=== PATIENT | female | born 1985 | race Caucasian/White ===

== ENCOUNTER 2019-01-28 14:18 | Emergency (ER) | payer OTHER ==
[~2019-01-28] VITALS: Ht 157.5 cm; Wt 72.6 kg
[~2019-01-28 14:18] MED LIST: MEDROL4 MG PO; PROVENTIL3 ML/2.5 M IH
== END 2019-01-28 19:31 | disposition home or self-care (01) ==
LOC: ER 14:18
DX: B34.9 Viral infection, unspecified (principal)

== ENCOUNTER 2023-11-03 15:50 | Emergency (ER) | payer OTHER ==
[~2023-11-03] VITALS: Ht 157.5 cm; Wt 72.6 kg
[2023-11-03] MEDS ORDERED: AMLODIPINE-OLM1 EAC2 (15:54)
[2023-11-03] MEDS ORDERED: ENALAPRILAT DIHYDRATE 1.25 MG/ML VIAL IV STA (17:03)
[2023-11-03] MEDS ORDERED: ENALAPRILAT DIHYDRATE 1.25 MG/ML VIAL IV ONE (17:23)
[2023-11-03 17:34] LABS: HEMATOCRIT 41.3 % (36.0-45.00); HEMOGLOBIN 14.1 g/dL (12.0-15.00); MEAN CELL VOLUME 88.3 fL (80.00-100.00); MEAN CORPUSCULAR HEMOGLOBIN 30.1 pg (27.00-32.0); MEAN CORPUSCULAR HGB CONC 34.2 g/dl (32.0-36.0); PLATELET COUNT 379 K/uL (150-450); RED BLOOD COUNT 4.68 M/uL (4.00-6.00); RED CELL DISTRIBUTION WIDTH 11.6 % (11.5-14.5)
[2023-11-03 17:53] LABS: CALCIUM 9.5 mg/dL (8.5-10.1); CREATININE SERUM 0.66 mg/dL (0.55-1.02); GFR 99.7; POTASSIUM 3.44 mEq/L (3.5-5.1)
[2023-11-03] MEDS ORDERED: KETOROLAC TROMETHAMINE 30 MG VIAL IM STA (18:21)
[2023-11-03] MEDS ORDERED: KETOROLAC TROMETHAMINE 30 MG VIAL ONE (18:29)
== END 2023-11-03 19:02 | disposition home or self-care (01) ==
LOC: ER 15:51
PROVIDERS: General Practice
DX: M94.0 Chondrocostal junction syndrome [Tietze] (principal); R07.89 Other chest pain

== ENCOUNTER 2024-04-30 12:15 | Emergency (ER) | payer OTHER ==
[~2024-04-30] VITALS: Ht 157.5 cm; Wt 73.0 kg
[~2024-04-30 12:15] MED LIST changes: +AMLODIPINE-OLM1 EAC2
[2024-04-30] MEDS ORDERED: TOPROL XL25 M1 (12:47)
[2024-04-30] MEDS ORDERED: CETIRIZINE HCL 5 MG/5 ML ML PO ONE (15:45)
[2024-04-30] MEDS ORDERED: ACETAMINOPHEN 500 MG GEL..CAP PO ONE (15:45)
[2024-04-30] MEDS ORDERED: GUAIFENESIN/DEXTROMETHORPHAN 100MG/10ML BLIST.PACK PO ONE (15:45)
[2024-04-30 16:22] LABS: HEMATOCRIT 38.7 % (36.0-45.00); HEMOGLOBIN 13.1 g/dL (12.0-15.00); MEAN CELL VOLUME 89.4 fL (80.00-100.00); MEAN CORPUSCULAR HEMOGLOBIN 30.2 pg (27.00-32.0); MEAN CORPUSCULAR HGB CONC 33.8 g/dl (32.0-36.0); PLATELET COUNT 275 K/uL (150-450); RED BLOOD COUNT 4.33 M/uL (4.00-6.00); RED CELL DISTRIBUTION WIDTH 11.7 % (11.5-14.5)
[2024-04-30] MEDS ORDERED: OSELTAMIVIR PHOSPHATE 75 MG CAPSULE PO ONE (17:00)
[2024-04-30] MEDS ORDERED: QC TUSSIN DM L118 ML PO (17:40)
[2024-04-30] MEDS ORDERED: ZYRTEC10 MG PO (17:40)
[2024-04-30] MEDS ORDERED: OSEL75CA PO (17:40)
== END 2024-04-30 18:02 | disposition home or self-care (01) ==
LOC: ER 12:17
PROVIDERS: General Practice
DX: J10.1 Influenza due to other identified influenza virus with other respiratory manifestations (principal); R53.81 Other malaise; J45.909 Unspecified asthma, uncomplicated; I10 Essential (primary) hypertension; Z20.822 Contact with and (suspected) exposure to COVID-19

== ENCOUNTER 2024-12-19 09:16 | Emergency (ER) | payer OTHER ==
[~2024-12-19] VITALS: Ht 157.5 cm; Wt 72.6 kg
[~2024-12-19 09:16] MED LIST changes: +OSEL75CA PO; +QC TUSSIN DM L118 ML PO; +TOPROL XL25 M1; +ZYRTEC10 MG PO
[2024-12-19] MEDS ORDERED: BUTALB/ACETAMINOPHEN/CAFFEINE 1 TAB TABLET PO ONE (10:00)
[2024-12-19 10:34] LABS: BASO % 0.6 % (0.1-1.2); EOS # 0.11 (0.04-0.54); EOS % 2.0 % (0.7-7.0); LYMPH # 0.91 (1.18-3.74); LYMPH % 16.9 % (19.3-53.1); MEAN PLATELET VOLUME 9.40 fl (9.4-12.4); MONO # 0.64 (0.24-0.82); MONO % 11.9 % (4.7-12.5); NEUT # 3.51 (1.56-6.13); NEUT % 65.1 % (34.0-71.1); RED CELL DISTRIBUTION WIDTH 10.9 % (11.6-14.4)
[2024-12-19 11:14] LABS: COVID-19 AG NEGATIVE (NEGATIVE)
[2024-12-19] MEDS ORDERED: BUTALBIT-ACETA1 EACH PO (11:48)
[2024-12-19] MEDS ORDERED: ZYRTEC10 MG PO (11:48)
[2024-12-19 12:47] LABS: BAND MAN 3.0 %; EOSINOPHIL MAN 4.0 %; LYMPHOCYTE MAN 14.0 %; MONOCYTE MAN 6.0 %; NEUTROPHILS MAN 71.0 %
[2024-12-19 12:48] LABS: METAMYELOCYTE 1.0 %
== END 2024-12-19 13:20 | disposition home or self-care (01) ==
LOC: ER 09:17
PROVIDERS: General Practice
DX: M79.18 Myalgia, other site (principal); Z20.822 Contact with and (suspected) exposure to COVID-19; I10 Essential (primary) hypertension; Z87.09 Personal history of other diseases of the respiratory system